=== PATIENT | male | born 1955 | race Caucasian/White ===

== ENCOUNTER 2016-08-05 08:45 | Inpatient (IN) | payer OTHER ==
[2016-07-17 13:14] VITALS: BMI 38.0
--- NOTE | 2016-07-17 13:54 | PAT Medication Instructions ---
Service Date Jul 17, 2016. Current Home Medication List Aspirin (Aspirin Ec), 81 MG PO QAM Fglmauqigsn-Eedidcmorke-Ax Cho (Glucosamine Chondroitin &), 1 TAB PO BID Hydrochlorothiazide (Hydrochlorothiazide), 1 TAB PO NOON Levothyroxine Sodium (Synthroid), 50 MCG PO QAM Losartan Potassium (Cozaar), 50 MG PO QAM Multivitamin (Multivitamin), 1 TAB PO QAM Pantoprazole (Protonix), 40 MG PO QAM Pyridoxine (Vitamin B6), 100 MG PO QAM Rosuvastatin Calcium (Crestor), 5 MG PO QPM Sildenafil Citrate (Viagra), 100 MG PO PRN Tamsulosin Hcl (Flomax), 0.4 MG PO QPM [Magnesium], 200 MG PO QPM [Migraines Med], 1 TAB PO PRN Medication Instructions For Your Scheduled Surgery [Migraines Med], 1 TAB PO PRN-- Patient advised to contact PAT department with name and dose of medication. - Hold the following medications 2 weeks prior to surgery: Axrbonbojot-Crubhvqfiri-Me Cho (Glucosamine Chondroitin &), 1 TAB PO BID - Hold the following medications the morning of surgery: Losartan Potassium (Cozaar), 50 MG PO QAM Sildenafil Citrate (Viagra), 100 MG PO PRN Pyridoxine (Vitamin B6), 100 MG PO QAM Multivitamin (Multivitamin), 1 TAB PO QAM Hydrochlorothiazide (Hydrochlorothiazide), 1 TAB PO NOON - Take the following medications the morning of surgery with a sip of water: Pantoprazole (Protonix), 40 MG PO QAM Levothyroxine Sodium (Synthroid), 50 MCG PO QAM Aspirin (Aspirin Ec), 81 MG PO QAM - Take the following medications as scheduled the night before surgery: [Magnesium], 200 MG PO QPM Tamsulosin Hcl (Flomax), 0.4 MG PO QPM Rosuvastatin Calcium (Crestor), 5 MG PO QPM Sildenafil Citrate (Viagra), 100 MG PO PRN Hydrochlorothiazide (Hydrochlorothiazide), 1 TAB PO NOON If you have any questions please call us at [phone] (Talita Mackey PA-C) or [phone] or [phone]
[2016-07-17 14:26] LABS: BASO % 0.2 %; BASO ABS # 0.01 K/uL (0-0.2); COMPLETE YES; EOS % 1.7 %; HEMATOCRIT 39.5 % (42-52); IG% 0.2 %; LYMPH % 39.5 %; LYMPH ABS # 2.32 K/uL (1.2-3.4); MEAN CELL VOLUME 94.7 fL (80-100); MEAN CORPUSCULAR HEMOGLOBIN 33.6 pg (25-34); MEAN CORPUSCULAR HGB CONC 35.4 g/dl (32-36); MEAN PLATELET VOLUME 9.9 fL (7.4-10.4); MONO % 6.6 %; NEUT % 51.8 %; PLATELET COUNT 207 K/uL (130-400); RED BLOOD COUNT 4.17 M/uL (4.7-6.1); WHITE BLOOD COUNT 5.87 K/uL (4.8-10.8)
[2016-07-17 14:34] LABS: ESTIMATED AVERAGE GLUCOSE 114 mg/dl; HA1C FLAG Normal (Normal)
--- NOTE | 2016-07-17 14:34 | DIAGNOSTIC IMAGING REPORT ---
CHEST PREADMISSION(PA/LAT) CLINICAL HISTORY: Preoperative chest COMPARISON STUDY: No previous studies for comparison. FINDINGS: There are postsurgical changes of midline sternotomy and aortic valve replacement. The cardiac and mediastinal contours are normal. There is no focal pulmonary consolidation. There is no failure. There are no pleural effusions.[ IMPRESSION: No active disease in the chest. Electronically signed by: Zafar Han M.D. 07/17/2016 2:33 PM Dictated Date/Time: 07/17/2016 2:32 PM
[2016-07-17 14:38] LABS: URINE APPEARANCE CLEAR (CLEAR); URINE BILIRUBIN NEG (NEG); URINE COLOR YELLOW; URINE NITRITE NEG (NEG); URINE PH 6.5 (4.5-7.5); UROBILINOGEN NEG (NEG)
[2016-07-17 14:41] LABS: PROTHROMBIN TIME (PATIENT) 10.5 SECONDS (9.0-12.0)
[2016-07-17 14:50] LABS: CREATININE 0.88 mg/dl (0.60-1.40); MANUAL MICROSCOPIC REQUIRED? NO; POTASSIUM 4.3 mmol/L (3.5-5.1); REVIEW REQ? NO
--- NOTE | 2016-07-29 13:47 | History and Physical ---
History & Physical Date Jul 29, 2016. Chief Complaint left knee pain History of Present Illness 1. left knee pain Mr Sanderson is a 60 year old male who is here for a follow up of left knee pain. He presents with pain, decreased rom and stiffness on the left side. Patient is here today for pre op prior to left knee TKA. The symptoms occur constantly with intermittent worsening. The problem is worse. Currently the patient states that the symptoms are moderate-severe. The pain is described as aching, discomforting and throbbing. The symptoms occur continuously. The symptoms are aggravated by ascending stairs, daily activities, descending stairs, first steps while awake, kneeling, repetitive activities, sleeping in any position, squatting and walking. Juni states that the symptoms are relieved by no specific activity. In addition to left knee pain the patient is also experiencing decreased mobility, difficulty bending, difficulty going to sleep, limping, locking, nighttime awakening, pain, stiffness, tenderness and weakness. Pertinent negatives include chills and fever. The patient has had a previous x-ray and MRI. Prior NSAIDs include ibuprofen. Patient has had previous therapy. Patient has had arthroscopic surgery. 11/20/2010 Dr. Joy performed Left knee arthroscopy w/ partial lateral meniscectomy, chondroplasty, medial femoral condyle and patella. 05/30/2015 Dr. Joy performed left knee arthroscopy w/ partial medial meniscectomy, chondroplasty medial femoral condyle and patellofemoral joint, fluoro guided subchondroplasty for stress reaction medial tibial plateau at [facility]. Past Medical/Surgical History 1. history of heart valve replacement 2. HTN 3. High Cholesterol 4. Hypothyroidism 5. Right shoulder scope 6. hernia repair 7. previous knee arthroscopy Additional History Hepatic Disease: No Hypertension: Yes Bleeding Tendencies: No Infectious Diseases: No Allergies Coded Allergies: No Known Allergies (Unverified , 07/17/16) Home Medications Scheduled Aspirin (Aspirin Ec), 81 MG PO QAM Pwgblmclpvt-Svoopmohbot-Mk Cho (Glucosamine Chondroitin &), 1 TAB PO BID Hydrochlorothiazide (Hydrochlorothiazide), 1 TAB PO NOON Levothyroxine Sodium (Synthroid), 50 MCG PO QAM Losartan Potassium (Cozaar), 50 MG PO QAM Multivitamin (Multivitamin), 1 TAB PO QAM Pantoprazole (Protonix), 40 MG PO QAM Pyridoxine (Vitamin B6), 100 MG PO QAM Rosuvastatin Calcium (Crestor), 5 MG PO QPM Sildenafil Citrate (Viagra), 100 MG PO PRN Tamsulosin Hcl (Flomax), 0.4 MG PO QPM [Magnesium], 200 MG PO QPM Scheduled PRN Carisoprodol (Carisoprodol), 1 TAB PO DAILY PRN for Headache Physical Examination Skin: warm/dry, no rash Eyes: normal inspection, EOMI, sclerae normal ENT: normal ENT inspection, pharynx normal Head: normocephalic, atraumatic Neck: supple, no adenopathy, trachea midline Respiratory/Chest: lungs clear, normal breath sounds, no respiratory distress Cardiovascular: regular rate, rhythm, no edema, no murmur Abdomen / GI: normal bowel sounds, non tender Addiitonal Comments: Exam Findings Details Knee ROM L * Active ROM - Flexion: 125 degrees, Extension: 3 degrees, Factors: normal, Description: active pain free range of motion. Passive ROM - Flexion: 135 degrees, Extension: 0 degrees, Factors: normal, Description: passive pain range of motion. Knee ROM R * Active ROM - Flexion: 135 degrees, Extension: 0 degrees, Factors: normal, Description: active pain free range of motion. Passive ROM - Flexion: 135 degrees, Extension: 0 degrees, Factors: normal, Description: passive pain free range of motion. Strength LE Normal Strength Description - Normal lower extremity: Bilateral. Knee * Gait: Antalgic. Alignment - Left: neutral. Ecchymosis - Left: negative. Effusion - Left: mild. Swelling - Left: mild. Flexibility - Left: normal. Maximum tenderness - Left: Medial Joint Line. Patella exam - Crepitation - Left : negative. Patella position - Left: neutral. Tilt - Left: equal. Dinah's - medial - Left: Positive. Knee Comments The patient has no calf tenderness. Knee Normal Inspection - Atrophy - Left: Absent. Skin - Left: Normal. Patella exam - Apprehension - Right: Negative, Left: Negative. Q-angle - Right: Normal, Left: Normal. Kay's - Left: Negative. [facility]'s - lateral - Left: Negative. Posterior drawer - Left: Negative. Anterior drawer - Left: Negative. Valgus stress - Right: Negative, Left: Negative. Varus stress - Right: Negative , Left: Negative. Extensor lag - Right: Normal, Left: Normal. Neurovascular LE Normal Neurovascular examination including reflexes, sensation , and pulses is within normal limits. Left Knee xray: Xrays reviewed of the left knee showing findings consistent with degenerative joint disease including joint space narrowing, subchondral sclerosis and peripheral osteophyte formation. no acute bony pathology, overall varus alignment. s/p subchondroplasty Impression: degenerative joint disease of the lef knee with no acute bony pathology noted. Diagnosis Left Knee DJD PM Hx as detailed above Plan of Treatment Further care discussed with patient and at this point in time has failed conservative measures and would like to proceed with a left total knee replacement. Plan on discharge will be home with outpatient physical therapy. DVT prophalaxis with TEDs, SCDs and will also place on aspirin 81 mg p.o. b.i.d. for a month postop. Patient will have follow up appointment in our office two weeks post op for staple/suture removal and re-evaluation. Patient otherwise has no other questions or concerns.
[~2016-08-05] VITALS: Ht 167.6 cm; Wt 108.1 kg
[2016-08-05] VITALS (8 sets, daily range): BP systolic 99–140; BP diastolic 64–88; PULSE 72–94; TEMP 36.6–39.9; O2SAT 92–98; Ht 167.6 cm; Wt 108.1 kg
[2016-08-05] MEDS: TRANEXAMIC ACID INJ 1,000 MG in SODIUM CHLORIDE 0.9% 100ML 100 ML IV SCH ×2 (06:30→10:37)
--- NOTE | 2016-08-05 07:12 | History & Physical Bridge Note ---
H&P Re-Evaluation Bridge Note: I have examined the patient, reviewed the History & Physical and in the interval since the performance of the History & Physical I have noted the following changes of clinical significance: No changes noted
[~2016-08-05 08:45] MED LIST: ACETAMINOPHEN 500 MG TAB PO SCH; ASPI81TA28 PO; BACITRACIN 50000 UNIT VIAL ONE; BUPIVACAINE 0.25% 30 ML VIAL ONE; BUPIVACAINE 0.5 % 5 MG/1 ML PF 10ML VIAL ONE; CEFAZOLIN 2000 MG/60 ML D5W 60 ML IV SCH; CRS/10 PO; CeleBREX 200 MG CAP PO SCH; DEXAMETHASONE 4 MG TAB PO SCH; FAMOTIDINE 20 MG TAB PO SCH; FENTANYL CITRATE INJ 50 MCG/1 ML 2 ML VIAL ONE; GABAPENTIN 300 MG CAP PO SCH; GLUCTAB32 PO; HYDR12.55 PO; LACTATED RINGER'S 1000ML 1,000 ML IV SCH; LACTATED RINGER'S 1000ML IV SCH; LACTATED RINGER'S 500 ML IV SCH; LEVO50TA PO; LIDOCAINE HCL 2% 2 ML VIAL (20MG/ML) ONE; LOSA50TA6 PO; MAGNESIUM PO; MIDAZOLAM HCL 1 MG/ML 2ML VIAL ONE; MULT-506 PO; ONDANSETRON INJ 2 MG/ML 2 ML VIAL ONE; ORTHO JOINT ANESTHETIC ONE; PANT40TA PO; POVIDONE-IODINE OP SOLN 30 ML BTL ONE; PROPOFOL IV EMULSION 10 MG/ML 20 ML VIAL IV ONE; PYRI100T4 PO; ROPIVACAINE 5MG/ML 30 ML 150 MG, BUPIVACAINE/EPINEPHR 0.5% MPF 30 ML, KETOROLAC TROMETH... INFIL SCH; SILD100T PO; SM350 PO; TAMS0.4C38 PO
[2016-08-05] MEDS ORDERED: PROPOFOL IV EMULSION 10 MG/ML 20 ML VIAL IV ONE ×2 (08:56→12:23)
[2016-08-05] MEDS ORDERED: LIDOCAINE HCL 2% 2 ML VIAL (20MG/ML) ONE (08:56)
[2016-08-05] MEDS ORDERED: MIDAZOLAM HCL 1 MG/ML 2ML VIAL ONE ×2 (08:56→11:26)
[2016-08-05] MEDS ORDERED: ONDANSETRON INJ 2 MG/ML 2 ML VIAL ONE (08:56)
[2016-08-05] MEDS ORDERED: FENTANYL CITRATE INJ 50 MCG/1 ML 2 ML VIAL ONE (10:45)
[2016-08-05] MEDS ORDERED: POVIDONE-IODINE OP SOLN 30 ML BTL ONE (10:52)
[2016-08-05] MEDS ORDERED: LACTATED RINGER'S 1000ML 1,000 ML IV PRN (10:53)
[2016-08-05] MEDS ORDERED: FENTANYL CITRATE INJ 50 MCG/1 ML 2 ML VIAL IV PRN (11:00)
[2016-08-05] MEDS ORDERED: ONDANSETRON INJ 2 MG/ML 2 ML VIAL IV PRN ×2 (11:00→13:15)
[2016-08-05] MEDS ORDERED: EpHEDrine SULFATE 50MG/5ML SYR ONE (11:43)
--- NOTE | 2016-08-05 12:44 | [facility] Post Operative Brief Note ---
Immediate Operative Summary Operative Date Aug 05, 2016. Pre-Operative Diagnosis Left Knee Degenerative Joint Disease Post-Operative Diagnosis Left Knee Degenerative Joint Disease Procedure(s) Performed Left Total Knee Arthoplasty using jain nephew with stem tibia Surgeon Dr. Joy Clerical Order Filler Surgeon(s) Vj Clinton PA-C Estimated Blood Loss 15cc Findings severe djd with severe varus alignment Specimens A: Left knee bone and tissue Complication(s) None Disposition Recovery Room / PACU
[2016-08-05] MEDS ORDERED: MoRPHine SULFATE 2 MG/ML CARP IV PRN (13:15)
[2016-08-05] MEDS ORDERED: ZOLPIDEM TARTRATE 5 MG TAB PO PRN (13:15)
[2016-08-05] MEDS ORDERED: ALUMINUM/MAGNESIUM/SIMETH (MAALOX MAX) 30 ML UDC PO PRN (13:15)
[2016-08-05] MEDS ORDERED: DiphenhydrAMINE HCL 50 MG/ML VIAL IV PRN (13:15)
[2016-08-05] MEDS ORDERED: MAGNESIUM HYDROXIDE SUSP 30 ML UDC PO PRN (13:15)
[2016-08-05] MEDS ORDERED: BISACODYL 10 MG SUPP PR PRN (13:15)
[2016-08-05] MEDS ORDERED: CARISOPRODOL 350 MG TAB PO PRN (13:15)
--- NOTE | 2016-08-05 13:38 | Anesthesiology Progress Note ---
Anesthesia Post Op Note Date & Time Aug 05, 2016 at 13:38 Vital Signs Pain Intensity: 0 Vital Signs Past 12 Hours Date Time Temp Pulse Resp B/P Pulse Ox O2 Delivery O2 Flow Rate FiO2 08/05/16 13:30 82 16 116/74 94 Nasal Cannula 2 08/05/16 13:20 82 16 104/72 96 Nasal Cannula 2 08/05/16 13:14 36.6 85 16 110/72 97 Nasal Cannula 2 08/05/16 09:05 39.9 72 18 140/85 96 Room Air Notes Mental Status: alert / awake / arousable, participated in evaluation Pt Amnestic to Procedure: Yes Nausea / Vomiting: adequately controlled Pain: adequately controlled Airway Patency, RR, SpO2: stable & adequate BP & HR: stable & adequate Hydration State: stable & adequate Neuraxial Anesthesia: was administered, sensory block is resolving Anesthetic Complications: no major complications apparent Pt doing very well.
--- NOTE | 2016-08-05 13:44 | DIAGNOSTIC IMAGING REPORT ---
TWO VIEWS LEFT KNEE CLINICAL HISTORY: Postoperative examination. FINDINGS: AP and crosstable lateral portable views of the left knee are obtained. A left knee arthroplasty is in near anatomic alignment. There has been undersurface remodeling of the patella. No acute fracture is seen. There are expected postoperative changes around the knee including skin clips, a surgical drain, soft tissue edema, and subcutaneous gas. IMPRESSION: Expected postoperative changes status post left knee arthroplasty. No acute fracture is seen. Electronically signed by: Reggie Ceja M.D. 08/05/2016 1:43 PM Dictated Date/Time: 08/05/2016 1:43 PM
--- NOTE | 2016-08-05 14:10 | OPERATIVE REPORT ---
DATE OF OPERATION: 08/05/2016 PREOPERATIVE DIAGNOSES: Severe end-stage degenerative joint disease, left knee with collapse medial compartment, status post subchondroplasty. POSTOPERATIVE DIAGNOSES: Same. PROCEDURE: Left total knee arthroplasty with a Journey II with block total knee arthroplasty size 5 femur, 4 tibia with a 14 x 100 mm stem, 13 constrained poly, 32 oval patella. SURGEON: Moises Joy DO ACTUARIAL SCIENCE TEACHER: Vj Clinton PA-C who was necessary for prepping, draping, retraction, and wound closure of deep fascia, subQ and skin and is necessary for case. ESTIMATED BLOOD LOSS: 50 mL. COMPLICATIONS: None. TOURNIQUET TIME: 50 minutes. HISTORY OF PRESENT ILLNESS: The patient presents as a very pleasant 60-year-old white male being seen and evaluated with complaints of ongoing pain about his knee. He has failed attempts at conservative management including physical therapy, viscosupplementation, bracing, activity modification and relative rest and presents for total knee arthroplasty. DESCRIPTION OF PROCEDURE: The patient was properly prepped and draped in supine position for total knee arthroplasty after identifying the appropriate surgical site. An anterior midline incision was made through the subcutaneous tissues down to the region of the extensor mechanism. A medial parapatellar incision was subsequently made. Meticulous hemostasis was obtained and performed at all times. The patella having been subluxed lateralward, medial and lateral meniscal remnants were excised. The patellar cut was then initially made and was sized to the appropriate size. After subluxing the tibia forward the appropriate meniscal fragments having been removed the distal femur was then cut first utilizing a May and Nephew block. The distal femoral cuts and chamfer cuts were all made under direct visualization and the proximal tibial osteotomy cut was also made utilizing May and Nephew blocks and checked with an extramedullary guide. The appropriate trial components on the femur and tibia were placed. Appropriate trial spacers were used to check flexion and extension gaps. With flexion and extension gaps being equal, the components were then subsequently after thorough irrigation and debridement lavage components were then subsequently cemented in the following order: femur, tibia and patella. Exparel was used for intraoperative anesthesia, the medial parapatellar incision was closed utilizing #1 Vicryl, subQ was closed with 2-0 Vicryl, skin was closed with skin clips. A sterile compression dressing was placed. The patient tolerated the procedure well and was taken to recovery room in stable condition. Due to the complex nature of the procedure, the entire surgery was performed with the operational assistance of Vj Clinton PA-C. The expanded function dental assistant, under direct supervision, was involved in the actual performance of all aspects of the surgical procedure including hemostasis, tissue retraction and incision, instrument management, patient positioning, and wound closure. I attest to the content of the Intraoperative Record and any orders documented therein. Any exceptio ns are noted below.
[2016-08-05] MEDS ORDERED: MoRPHine SULFATE 10 MG/ML CARP/VIAL IV PRN (14:45)
[2016-08-05] MEDS ORDERED: MoRPHine SULFATE 4 MG/ML 1 ML CARP\\VIAL IV PRN (14:45)
--- NOTE | 2016-08-05 16:58 | Medical Consult ---
Consultation Date of Consultation: Aug 05, 2016. Attending Physician: Moises Joy D.O. Reason for Consultation: Postoperative medical management History of Present Illness The patient is a 60-year-old male who is status post left total knee arthroplasty by Dr. Joy earlier today. He reports that his pain is well controlled, he feels hungry. He has no complaints. Social History Smoking Status: Never Smoker Smokeless Tobacco Use: No Alcohol Use: none Drug Use: none Marital Status: Housing Status: lives with family Occupation Status: employed Allergies Coded Allergies: No Known Allergies (Unverified , 08/05/16) Current Inpatient Medications Current Inpatient Medications Medications (Trade) Dose Ordered Sig/Dennis Route Start Time Stop Time Status Last Admin Dose Admin Cefazolin Sodium (Ancef 2000mg/60 ml D5W) 60 ml @ 100 mls/hr PREOP IV 08/05/16 06:00 08/05/16 18:00 08/05/16 11:20 100 MLS/HR Acetaminophen (Tylenol Tab) 1,000 mg PREOP PO 08/05/16 06:00 08/05/16 18:00 08/05/16 09:31 1,000 MG Celecoxib (CeleBREX CAP) 200 mg PREOP PO 08/05/16 06:00 08/05/16 18:00 08/05/16 09:31 200 MG Dexamethasone (Decadron Tab) 8 mg PREOP PO 08/05/16 06:00 08/05/16 18:00 08/05/16 09:31 8 MG Famotidine (Pepcid Tab) 20 mg PREOP PO 08/05/16 06:00 08/05/16 18:00 08/05/16 09:32 20 MG Gabapentin 600 mg 600 mg PREOP PO 08/05/16 06:00 08/05/16 18:00 08/05/16 09:31 600 MG Tranexamic Acid/ Sodium Chloride (Cyklokapron Inj/ Nss 100ml) 110 ml @ 660 mls/hr TODAY@06,0630 IV 08/05/16 06:00 08/05/16 18:00 08/05/16 10:37 660 MLS/HR Carisoprodol (Soma Tab) 350 mg DAILY PRN PO 08/05/16 13:15 09/04/16 13:14 Levothyroxine Sodium (Synthroid Tab) 50 mcg DAILYBB PO 08/06/16 06:00 09/05/16 05:59 Losartan Potassium (coZAAR TAB) 50 mg QAM PO 08/06/16 09:00 09/05/16 08:59 Multivitamins (Multivitamin Tab) 1 tab QAM PO 08/06/16 09:00 09/05/16 08:59 Pantoprazole Sodium (Protonix Tab) 40 mg QAM PO 08/06/16 09:00 09/05/16 08:59 Pyridoxine HCl (Vitamin B-6 Tab) 100 mg QAM PO 08/06/16 09:00 09/05/16 08:59 Rosuvastatin Calcium (Crestor Tab) 5 mg QPM PO 08/05/16 21:00 09/04/16 20:59 Tamsulosin HCl (Flomax Cap) 0.4 mg QPM PO 08/05/16 21:00 09/04/16 20:59 Magnesium Oxide 200 mg 200 mg QPM PO 08/05/16 21:00 09/04/16 20:59 Potassium Chloride/Dextrose/ Sod Cl 1,000 ml @ 100 mls/hr Q10H IV 08/05/16 16:15 08/06/16 13:14 Cefazolin Sodium/ Dextrose (Ancef Iv/D5 50ml) 60 ml @ 100 mls/hr Q8H IV 08/05/16 20:00 08/06/16 04:35 Ketorolac Tromethamine (Toradol Inj) 30 mg Q6H IV. 08/05/16 16:00 08/06/16 13:14 Oxycodone HCl (Roxicodone Immediate Rel Tab) 1 TABLET FOR PAIN RATING... Q4H PRN PO 08/05/16 13:15 08/19/16 13:14 Oxycodone HCl (Oxycontin Tab) 10 mg Q12 PO 08/05/16 21:00 08/19/16 20:59 Acetaminophen (Tylenol Tab) 1,000 mg Q8H PO 08/05/16 22:00 09/04/16 13:14 Magnesium Hydroxide (Milk Of Magnesia Susp) 30 ml Q6H PRN PO 08/05/16 13:15 09/04/16 13:14 Bisacodyl (Dulcolax Supp) 10 mg DAILY PRN DC 08/05/16 13:15 09/04/16 13:14 Senna (Senokot Tab) 17.2 mg HS PO 08/05/16 21:00 09/04/16 20:59 Docusate Sodium (coLACE CAP) 100 mg BID PO 08/05/16 21:00 09/04/16 20:59 Diphenhydramine HCl (Benadryl Inj) 25 mg Q8H PRN IV 08/05/16 13:15 09/04/16 13:14 Al Hydrox/Mg Hydrox/Simethicone (Maalox Max Susp) 15 ml Q4H PRN PO 08/05/16 13:15 09/04/16 13:14 Zolpidem Tartrate (Ambien Tab) 5 mg HSZ PRN PO 08/05/16 13:15 09/04/16 13:14 Ondansetron HCl (Zofran Inj) 4 mg Q6H PRN IV 08/05/16 13:15 09/04/16 13:14 Ferrous Gluconate (Ferrous Gluconate Tab) 324 mg TIDM PO 08/05/16 17:45 09/04/16 17:59 Aspirin (Ecotrin Tab) 81 mg BID PO 08/05/16 21:00 09/04/16 20:59 Morphine Sulfate (MoRPHine SULFATE INJ) 2 mg Q4HWA PRN IV 08/05/16 13:15 08/19/16 13:14 Morphine Sulfate (MoRPHine SULFATE INJ) 4 mg Q4HWA PRN IV 08/05/16 14:45 08/19/16 14:44 Morphine Sulfate (MoRPHine SULFATE INJ) 6 mg Q4HWA PRN IV 08/05/16 14:45 08/19/16 14:44 Review of Systems The patient denies chest pain, palpitations, shortness of breath, cough, vision change, hearing change, sore throat, fevers, chills, sweats, weight change, fatigue, nausea, vomiting, abdominal pain, pelvic pain, blood in urine or stool , dysuria, urinary frequency or urgency, lightheadedness, dizziness, headache, memory loss, rash, abnormal bruising or bleeding, night sweats, or allergy symptoms. The review of systems is otherwise negative other than for that already noted above, and at least 10 systems have been reviewed. Physical Exam Date Time Temp Pulse Resp B/P Pulse Ox O2 Delivery O2 Flow Rate FiO2 08/05/16 16:24 94 16 129/79 94 Room Air 08/05/16 16:09 95 Room Air 08/05/16 15:59 36.8 78 16 133/88 97 Nasal Cannula 3.0 08/05/16 15:30 96 Nasal Cannula 3.0 08/05/16 15:30 37.1 84 16 111/74 96 Nasal Cannula 3.0 08/05/16 15:00 37.0 85 16 116/74 94 Nasal Cannula 2 08/05/16 14:45 81 16 115/73 94 Nasal Cannula 2 08/05/16 14:30 78 16 118/72 94 Nasal Cannula 2 08/05/16 14:15 36.6 90 16 115/74 94 Nasal Cannula 2 08/05/16 14:00 36.6 82 16 127/79 94 Nasal Cannula 2 08/05/16 13:50 36.6 79 16 126/76 94 Nasal Cannula 2 08/05/16 13:40 88 16 131/82 95 Nasal Cannula 2 08/05/16 13:30 82 16 116/74 94 Nasal Cannula 2 08/05/16 13:20 82 16 104/72 96 Nasal Cannula 2 08/05/16 13:14 36.6 85 16 110/72 97 Nasal Cannula 2 08/05/16 09:05 39.9 72 18 140/85 96 Room Air The patient is awake, well-developed and adequately nourished, alert and oriented 3, normocephalic and atraumatic, lying in bed and in no acute distress. HEENT--PERRL, EOMI, mucous membranes and oropharynx moist. Neck--supple, no JVD or bruits, thyroid normal, trachea midline, no adenopathy. Heart--normal S1 and S2, no extra beats, no murmurs, rubs or gallops. Lungs--clear bilaterally with good air movement, no respiratory distress, no accessory muscle use. Abdomen--normal bowel sounds and soft, nontender and nondistended, no hernias or masses, no organomegaly. Extremities--no cyanosis, clubbing or edema. There are good distal pulses b/l. Dermatologic--normal skin turgor, normal color, warm and dry, no abnormal lymph nodes, no rash. Neurologic--cranial nerves II through XII grossly intact, motor and sensory examination normal. Rheumatologic--left knee wrapped. Psychiatric--normal affect. Laboratory Results Last 24 Hours Test 08/05/16 09:04 Assessment & Plan Status post left total knee arthroplasty--medically stable. Hypertension/status post heart valve replacement--continue losartan potassium 50 mg by mouth every morning, HCTZ 12.5mg resume at noon on 08/06, and enteric coated aspirin 81 mg by mouth every morning. Hypothyroidism--continue levothyroxine sodium 50 g by mouth every morning. GERD--continue pantoprazole 40 mg by mouth every morning. BPH--continue tamsulosin 0.4 mg by mouth in the evening. Hypercholesterolemia--continue Crestor 5 mg by mouth every afternoon. Thank you for this consult, the [facility] service will follow along during hospital stay.
[2016-08-05] MEDS: D5W AND 1/2NSS + 20MEQ KCL 1,000 ML IV SCH (17:00)
[2016-08-05] MEDS: FERROUS GLUCONATE 324 MG TAB PO SCH (17:01)
[2016-08-05] MEDS: KETOROLAC TROMETHAMINE 30 MG/ML VIAL IV. SCH ×2 (17:02→22:01)
[2016-08-05] MEDS ORDERED: PNEUMOCOCCAL POLYSACCHARIDES 25 MCG/0.5 ML VIAL/SYR IM. ONE (18:00)
[2016-08-05] MEDS ORDERED: PNEUMOCOCCAL ADMINISTRATION CHARGE ONE (18:00)
[2016-08-05] MEDS: CEFAZOLIN IV 2,000 MG in DEXTROSE 5% 50ML 50 ML IV SCH (20:23)
[2016-08-05] MEDS: DOCUSATE SODIUM 100 MG CAP PO SCH (20:26)
[2016-08-05] MEDS: OXYCODONE HCL 10 MG TABCR (OXYCONTIN) PO SCH (20:26)
[2016-08-05] MEDS: MAGNESIUM OXIDE 400 MG TAB PO SCH (20:27)
[2016-08-05] MEDS: ASPIRIN 81 MG ECTAB PO SCH (20:28)
[2016-08-05] MEDS: ROSUVASTATIN CALCIUM 5 MG TAB PO SCH (20:28)
[2016-08-05] MEDS: TAMSULOSIN HCL 0.4 MG CAP PO SCH (20:28)
[2016-08-05] MEDS: SENNA 8.6 MG TAB PO SCH (20:29)
[2016-08-05] MEDS: ACETAMINOPHEN 500 MG TAB PO SCH (22:00)
[2016-08-05] MEDS: OXYCODONE HCL IR 5 MG TAB (IMMEDIATE RELEASE) PO PRN (22:02)
[2016-08-06] MEDS: D5W AND 1/2NSS + 20MEQ KCL 1,000 ML IV SCH ×2 (02:10→12:15)
[2016-08-06 02:50] VITALS: BP 109/67; PULSE 66; TEMP 36.8; O2SAT 96
[2016-08-06] MEDS: CEFAZOLIN IV 2,000 MG in DEXTROSE 5% 50ML 50 ML IV SCH (03:49)
[2016-08-06] MEDS: KETOROLAC TROMETHAMINE 30 MG/ML VIAL IV. SCH ×2 (03:49→10:17)
[2016-08-06] MEDS: OXYCODONE HCL IR 5 MG TAB (IMMEDIATE RELEASE) PO PRN ×4 (03:54→17:05)
[2016-08-06] MEDS: LEVOTHYROXINE 50 MCG TAB PO SCH (05:27)
[2016-08-06] MEDS: ACETAMINOPHEN 500 MG TAB PO SCH ×3 (05:28→21:16)
[2016-08-06 07:09] LABS: HEMATOCRIT 33.5 % (42-52); MEAN CELL VOLUME 94.4 fL (80-100); MEAN CORPUSCULAR HEMOGLOBIN 32.7 pg (25-34); MEAN CORPUSCULAR HGB CONC 34.6 g/dl (32-36); MEAN PLATELET VOLUME 9.6 fL (7.4-10.4); PLATELET COUNT 206 K/uL (130-400); RED BLOOD COUNT 3.55 M/uL (4.7-6.1); WHITE BLOOD COUNT 10.88 K/uL (4.8-10.8)
--- NOTE | 2016-08-06 07:11 | Orthopedic Progress Note ---
Orthopedic Progress Note Date of Service Aug 06, 2016. Subjective Post OP Day: 1 (s/p Left TKA) Reports: feeling well, pain controlled w PO medications, Denies: SOB, calf pain , chest pain, complaints, light headedness, nausea / vomiting Objective calves soft nontender, N/V intact, capillary refill less than 2 sec., dressing C /D/I, A&O x3, toes mobile, hemovac drainage (150 cc/ 8 hours) Date Time Temp Pulse Resp B/P Pulse Ox O2 Delivery O2 Flow Rate FiO2 08/06/16 02:50 36.8 66 17 109/67 96 Room Air 08/06/16 00:00 Room Air 08/05/16 23:46 36.7 76 18 99/64 98 Room Air 08/05/16 18:44 36.8 79 16 112/73 92 Room Air 08/05/16 17:35 36.6 92 16 116/74 95 Room Air 08/05/16 16:24 94 16 129/79 94 Room Air 08/05/16 16:09 95 Room Air 08/05/16 15:59 36.8 78 16 133/88 97 Nasal Cannula 3.0 08/05/16 15:30 96 Nasal Cannula 3.0 08/05/16 15:30 37.1 84 16 111/74 96 Nasal Cannula 3.0 08/05/16 15:00 37.0 85 16 116/74 94 Nasal Cannula 2 08/05/16 14:45 81 16 115/73 94 Nasal Cannula 2 08/05/16 14:30 78 16 118/72 94 Nasal Cannula 2 08/05/16 14:15 36.6 90 16 115/74 94 Nasal Cannula 2 08/05/16 14:00 36.6 82 16 127/79 94 Nasal Cannula 2 08/05/16 13:50 36.6 79 16 126/76 94 Nasal Cannula 2 08/05/16 13:40 88 16 131/82 95 Nasal Cannula 2 08/05/16 13:30 82 16 116/74 94 Nasal Cannula 2 08/05/16 13:20 82 16 104/72 96 Nasal Cannula 2 08/05/16 13:14 36.6 85 16 110/72 97 Nasal Cannula 2 08/05/16 09:05 39.9 72 18 140/85 96 Room Air Laboratory Results 24 Hours: Test 08/06/16 06:52 Assessment & Plan Assessment: POD #1 s/p Left TKA -PT/OT -dvt proph with LOCO/SCD/ASA -plan for d/c home with OPPT when stable Hypertension, h/o heart valve replacement--continue losartan potassium 50 mg by mouth every morning, HCTZ 12.5mg resume at noon on 08/06 Hypothyroidism--continue levothyroxine GERD--continue pantoprazole BPH Hypercholesterolemia Discharge Planning Discharge Planning: home with oppt DVT Prophylaxis: TEDs, SCDs, ASA
[2016-08-06 07:38] LABS: CALCIUM 8.2 mg/dl (8.5-10.1); CREATININE 0.97 mg/dl (0.60-1.40); POTASSIUM 4.2 mmol/L (3.5-5.1)
[2016-08-06 08:01] VITALS: BP 110/73; PULSE 67; TEMP 36.5; O2SAT 95
[2016-08-06] MEDS ORDERED: MULTIVITAMIN TAB PO SCH (09:00)
[2016-08-06] MEDS ORDERED: PANTOprazole SOD 40 MG TAB PO SCH (09:00)
[2016-08-06] MEDS: DOCUSATE SODIUM 100 MG CAP PO SCH ×2 (09:08→20:41)
[2016-08-06] MEDS: PANTOprazole SOD 40 MG TAB PO SCH (09:10)
[2016-08-06] MEDS: PYRIDOXINE HCL 50 MG TAB PO SCH (09:10)
[2016-08-06] MEDS: HYDROCHLOROTHIAZIDE 25 MG TAB PO SCH (09:11)
[2016-08-06] MEDS: ASPIRIN 81 MG ECTAB PO SCH ×2 (09:11→20:42)
[2016-08-06] MEDS: FERROUS GLUCONATE 324 MG TAB PO SCH ×3 (09:11→17:04)
[2016-08-06] MEDS: MULTIVITAMIN TAB PO SCH (09:11)
[2016-08-06] MEDS: LOSARTAN POTASSIUM 50 MG TAB PO SCH (09:12)
[2016-08-06] MEDS: OXYCODONE HCL 10 MG TABCR (OXYCONTIN) PO SCH ×2 (09:16→20:41)
[2016-08-06 10:47] VITALS: BP 115/77; PULSE 69; O2SAT 96
[2016-08-06 11:58] VITALS: BP 112/68; PULSE 66; TEMP 36.7; O2SAT 95
--- NOTE | 2016-08-06 13:17 | Discharge Instructions ---
Discharge Instructions Admission Reason for Admission: Left Knee Osteoarthritis Discharge Discharge Diagnosis / Problem: left TKA Discharge Goals Goal(s): Decrease discomfort, Improve function, Increase independence Activity Recommendations Activity Limitations: as noted below Weightbearing Status: Left weightbearing (as tolerated) . Instructions / Follow-Up Instructions / Follow-Up ACTIVITY RECOMMENDATIONS: SELF CARE INSTRUCTIONS AFTER TOTAL KNEE REPLACEMENT A. You may need to continue a physical therapy program after discharge from the hospital. There are several options available to you. Your doctor will assist you in selecting the best one for you. 1. An out-patient facility 2 to 3 times a week for therapy or home therapy. 2. Continue working on all exercises taught to you in the hospital. Your goals should be to increase bending of your knee to 90 degrees and beyond and to fully straighten your knee. B. You may progress at your own pace from walking with a walker or crutches to a cane; then to no assistive devices. C. Make walking a part of your daily routine. Be up as much as comfortable with rest periods throughout the day. Rest with leg elevation is very important. Use the ice wrap frequently for the first 3-4 weeks. D. There are no restrictions on activities. 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 E. Wear the long elastic stockings (LOCO hose) 20 hours a day for 2 weeks after surgery. They can be removed several times a day for laundering and for a bath. F. You may shower, no tub baths until cleared by your doctor. SPECIAL CARE INSTRUCTIONS: VERY IMPORTANT TO READ AND REVIEW A. There are a few signs you need to watch for after you are home. Call [facility] [place] if you notice any of the followin. Increased severe knee pain. Some pain is expected especially when you exercise. 2. Increased swelling in your leg or knee; pain or swelling of the calf muscle in either lower leg. 3. Any fluid drainage from the incision. 4. Shortness of breath or chest pain. B. Please call [facility] [place] at if you have any concerns or questions about your operation or recovery. The doctor or his nurse will return your call promptly. C. You must take antibiotics before dental work, bladder, bowel or other surgery. Your doctor will provide you with a permanent care to carry describing this precaution. IMPORTANT: * REMEMBER TO TAKE ASPIRIN, 81 MG, TWICE DAILY FOR 4 WEEKS UNLESS OTHERWISE DIRECTED. THIS IS YOUR BLOOD THINNER. * HIGH RISK PATIENTS MAY BE PRESCRIBED A STRONGER BLOOD THINNER. THIS WILL BE PROVIDED AT DISCHARGE. * CALL IF INCREASED PAIN, REDNESS, DRAINAGE OR FEVER GREATER THAT 101. * WEAR LOCO HOSE 20 HOURS PER DAY FOR 2 WEEKS. * YOU MAY HAVE A LARGE BAND-AID LIKE DRESSING (SILVERON). THIS WILL REMAIN ON YOUR INCISION FOR 7 DAYS, THEN CAN BE REMOVED. IF INCISION IS LEAKING THROUGH DRESSING, CALL THE OFFICE . FOLLOW UP VISIT: If appointment is not already scheduled: Please call [facility] [place] to make a follow-up appointment for 2 weeks after your surgery at . Current Hospital Diet Patient's current hospital diet: AHA Diet (Heart Healthy) Discharge Diet Recommended Diet: Regular Diet Procedures Procedures Performed: Left Total Knee Arthoplasty using jain nephew with stem tibia Pending Studies Studies pending at discharge: no Laboratory Results Hemoglobin A1c Test 07/17/16 14:02 Range/Units Estimated Average Glucose 114 mg/dl Hemoglobin A1c 5.6 4.5-5.6 % Medical Emergencies . Who to Call and When: Medical Emergencies: If at any time you feel your situation is an emergency, please call [phone] immediately. . Non-Emergent Contact Non-Emergency issues call your: Primary Care Provider, Surgeon . "Provider Documentation" section prepared by Mohinder Sparks. VTE Core Measure Inpt VTE Proph given/why not?: Other Anticoagulation (ASA 81mg po bid x 1 month ), T.E.Milka Benson, SCD's [place] Drug Monitoring Program Search Results: patient reviewed within database, no issues identified
--- NOTE | 2016-08-06 13:41 | Anesthesiology Progress Note ---
Anesthesia Post Op Note Date & Time Aug 06, 2016 at 13:40 Vital Signs Vital Signs Past 12 Hours Date Time Temp Pulse Resp B/P Pulse Ox O2 Delivery O2 Flow Rate FiO2 08/06/16 11:58 36.7 66 18 112/68 95 Room Air 08/06/16 08:01 36.5 67 19 110/73 95 Room Air 08/06/16 07:20 Room Air 08/06/16 02:50 36.8 66 17 109/67 96 Room Air Notes Mental Status: alert / awake / arousable, participated in evaluation Pt Amnestic to Procedure: Yes Nausea / Vomiting: adequately controlled Pain: adequately controlled Airway Patency, RR, SpO2: stable & adequate BP & HR: stable & adequate Hydration State: stable & adequate Neuraxial Anesthesia: was administered, sensory block resolved Anesthetic Complications: no major complications apparent
[2016-08-06 15:32] VITALS: BP 104/67; PULSE 66; TEMP 36.7; O2SAT 96
--- NOTE | 2016-08-06 17:52 | Progress Note ---
Subjective Date of Service: Aug 06, 2016. Subjective Pt evaluation today including: conversation w/ patient, conversation w/ family Pt is doing well post-op. Does have pain related to L knee, but as expected. Tolerating PO without issue. Pt denies fever, SOB, chest pain, abd pain, n/v/c/ d ROS as noted above, otherwise neg. Objective Vital Signs Date Time Temp Pulse Resp B/P Pulse Ox O2 Delivery O2 Flow Rate FiO2 08/06/16 15:54 Room Air 08/06/16 15:32 36.7 66 18 104/67 96 Room Air 08/06/16 11:58 36.7 66 18 112/68 95 Room Air 08/06/16 10:47 69 96 08/06/16 08:01 36.5 67 19 110/73 95 Room Air 08/06/16 07:20 Room Air 08/06/16 02:50 36.8 66 17 109/67 96 Room Air 08/06/16 00:00 Room Air 08/05/16 23:46 36.7 76 18 99/64 98 Room Air 08/05/16 18:44 36.8 79 16 112/73 92 Room Air Physical Exam General Appearance: WD/WN, no apparent distress ENT: hearing grossly normal Respiratory/Chest: normal breath sounds, no respiratory distress Cardiovascular: regular rate, rhythm, no edema Abdomen: non tender, soft Extremities: non-tender, no pedal edema Neurologic/Psychiatric: alert, normal mood/affect, oriented x 3 Skin: normal color, warm/dry Laboratory Results Last 24 Hours Test 08/06/16 06:52 White Blood Count 10.88 K/uL Red Blood Count 3.55 M/uL Hemoglobin 11.6 g/dL Hematocrit 33.5 % Mean Corpuscular Volume 94.4 fL Mean Corpuscular Hemoglobin 32.7 pg Mean Corpuscular Hemoglobin Concent 34.6 g/dl RDW Standard Deviation 44.5 fL RDW Coefficient of Variation 12.8 % Platelet Count 206 K/uL Mean Platelet Volume 9.6 fL Sodium Level 140 mmol/L Potassium Level 4.2 mmol/L Chloride Level 108 mmol/L Carbon Dioxide Level 22 mmol/L Anion Gap 10.0 mmol/L Blood Urea Nitrogen 18 mg/dl Creatinine 0.97 mg/dl Est Creatinine Clear Calc Drug Dose 91.0 ml/min Estimated GFR () 96.6 Estimated GFR (Non- 83.3 BUN/Creatinine Ratio 19.0 Random Glucose 127 mg/dl Calcium Level 8.2 mg/dl Assessment and Plan Status post left total knee arthroplasty--medically stable. Hypertension/status post heart valve replacement--continue losartan potassium 50 mg by mouth every morning, HCTZ 12.5mg resume at noon on 08/06, and enteric coated aspirin 81 mg by mouth every morning. Hypothyroidism--continue levothyroxine sodium 50 g by mouth every morning. GERD--continue pantoprazole 40 mg by mouth every morning. BPH--continue tamsulosin 0.4 mg by mouth in the evening. Hypercholesterolemia--continue Crestor 5 mg by mouth every afternoon.
[2016-08-06] MEDS: TAMSULOSIN HCL 0.4 MG CAP PO SCH (21:15)
[2016-08-06] MEDS: ROSUVASTATIN CALCIUM 5 MG TAB PO SCH (21:15)
[2016-08-06] MEDS: SENNA 8.6 MG TAB PO SCH (21:15)
[2016-08-06] MEDS: MAGNESIUM OXIDE 400 MG TAB PO SCH (21:15)
[2016-08-06 23:08] VITALS: BP 116/78; PULSE 61; TEMP 36.9; O2SAT 97
[2016-08-07] MEDS: OXYCODONE HCL IR 5 MG TAB (IMMEDIATE RELEASE) PO PRN ×2 (03:14→09:18)
[2016-08-07] MEDS: LEVOTHYROXINE 50 MCG TAB PO SCH (05:47)
[2016-08-07] MEDS: ACETAMINOPHEN 500 MG TAB PO SCH (05:47)
--- NOTE | 2016-08-07 07:07 | Orthopedic Progress Note ---
Orthopedic Progress Note Date of Service Aug 07, 2016. Subjective Post OP Day: 2 Reports: feeling well, pain controlled w PO medications, Denies: SOB, calf pain , chest pain, complaints, light headedness, nausea / vomiting Objective calves soft nontender, N/V intact, capillary refill less than 2 sec., dressing C /D/I, A&O x3, toes mobile Date Time Temp Pulse Resp B/P Pulse Ox O2 Delivery O2 Flow Rate FiO2 08/06/16 23:40 Room Air 08/06/16 23:08 36.9 61 16 116/78 97 Room Air 08/06/16 15:54 Room Air 08/06/16 15:32 36.7 66 18 104/67 96 Room Air 08/06/16 11:58 36.7 66 18 112/68 95 Room Air 08/06/16 10:47 69 96 08/06/16 08:01 36.5 67 19 110/73 95 Room Air 08/06/16 07:20 Room Air Assessment & Plan Assessment: POD #2 s/p Left TKA -PT/OT -dvt proph with LOCO/SCD/ASA -plan for d/c home with OPPT when stable, likely after PT today Hypertension, h/o heart valve replacement--continue losartan potassium 50 mg by mouth every morning, HCTZ 12.5mg resume at noon on 08/06 Hypothyroidism--continue levothyroxine GERD--continue pantoprazole BPH Hypercholesterolemia Discharge Planning Discharge Planning: home with oppt DVT Prophylaxis: TEDs, SCDs, ASA
[2016-08-07] MEDS ORDERED: OXYSR10 PO (07:09)
[2016-08-07] MEDS ORDERED: ASPEC81 PO (07:09)
[2016-08-07] MEDS ORDERED: RXC5 PO (07:09)
[2016-08-07] MEDS ORDERED: ONDA8TAB6 PO (07:09)
[2016-08-07] MEDS ORDERED: ACET-1138 PO (07:09)
[2016-08-07 08:06] VITALS: BP 145/82; PULSE 76; TEMP 36.7; O2SAT 96
[2016-08-07 08:17] VITALS: BP 145/82; PULSE 76; TEMP 36.7; O2SAT 96
[2016-08-07] MEDS: DOCUSATE SODIUM 100 MG CAP PO SCH (09:00)
[2016-08-07] MEDS: HYDROCHLOROTHIAZIDE 25 MG TAB PO SCH (09:13)
[2016-08-07] MEDS: FERROUS GLUCONATE 324 MG TAB PO SCH (09:13)
[2016-08-07] MEDS: LOSARTAN POTASSIUM 50 MG TAB PO SCH (09:14)
[2016-08-07] MEDS: PYRIDOXINE HCL 50 MG TAB PO SCH (09:14)
[2016-08-07] MEDS: PANTOprazole SOD 40 MG TAB PO SCH (09:14)
[2016-08-07] MEDS: MULTIVITAMIN TAB PO SCH (09:15)
[2016-08-07] MEDS: OXYCODONE HCL 10 MG TABCR (OXYCONTIN) PO SCH (09:18)
[2016-08-07 09:44] VITALS: O2SAT 96
[2016-08-07] MEDS: ASPIRIN 81 MG ECTAB PO SCH (10:03)
--- NOTE | 2016-08-07 14:55 | Progress Note ---
Subjective Date of Service: Aug 07, 2016. Subjective Pt is doing well post-op. Tolerating PO. No SOB or chest pain. ROS as noted above, otherwise neg. Objective Vital Signs Date Time Temp Pulse Resp B/P Pulse Ox O2 Delivery O2 Flow Rate FiO2 08/07/16 09:44 96 Room Air 08/07/16 08:17 36.7 76 16 96 Room Air 08/07/16 08:06 36.7 76 16 145/82 96 Room Air 08/07/16 07:15 Room Air 08/06/16 23:40 Room Air 08/06/16 23:08 36.9 61 16 116/78 97 Room Air 08/06/16 15:54 Room Air 08/06/16 15:32 36.7 66 18 104/67 96 Room Air Physical Exam Comments: General Appearance: WD/WN, no apparent distress Respiratory/Chest: no respiratory distress Cardiovascular: no edema Extremities: no pedal edema Neurologic/Psychiatric: alert, normal mood/affect, oriented x 3 Skin: normal color, warm/dry Assessment and Plan Status post left total knee arthroplasty--medically stable. Hypertension/status post heart valve replacement--continue losartan potassium 50 mg by mouth every morning, HCTZ 12.5mg resume at noon on 08/06, and enteric coated aspirin 81 mg by mouth every morning. Hypothyroidism--continue levothyroxine sodium 50 g by mouth every morning. GERD--continue pantoprazole 40 mg by mouth every morning. BPH--continue tamsulosin 0.4 mg by mouth in the evening. Hypercholesterolemia--continue Crestor 5 mg by mouth every afternoon.
--- NOTE | 2016-08-12 13:25 | Discharge Summary ---
Orthopedic Discharge Summary Admission Date/Reason Aug 05, 2016 at 11:00 Left Knee Osteoarthritis. Discharge Date/Disposition Aug 07, 2016 Diagnosis Principal Diagnosis: Left Knee Djd Secondary Diagnoses/Problems: Htn, Hypercholesterolemia, Hypothyroidism, BPH, GERD Procedure(s) Performed Left TKA Consultations Dr Delgado Medication Reconciliation New Medications: Ondansetron Hcl (Zofran) 8 Mg Tab 8 MG PO Q8 PRN for Nausea, #20 TAB Acetaminophen (Tylenol Extra Strength) 500 Mg Tab 1000 MG PO Q8H, #126 TAB Aspirin (Aspirin EC Low Dose) 81 Mg Ectab 81 MG PO BID for 30 Days Oxycodone HCl (Oxycontin) 10 Mg Tabcr 10 MG PO Q12, #20 Oxycodone HCl (Oxycodone HCl) 5 Mg Tab 5-10 MG PO Q4H PRN for Pain, #60 TAB Continued Medications: Carisoprodol (Carisoprodol) 350 Mg Tab 1 TAB PO DAILY PRN for Headache Bwkwjliybvu-Srfmsxpmpfd-Iu Cho (Glucosamine Chondroitin &) 1 Tab Tab 1 TAB PO BID Hydrochlorothiazide (Hydrochlorothiazide) 12.5 Mg Tab 1 TAB PO NOON for 90 Days, TAB 3 Refills Levothyroxine Sodium (Synthroid) 50 Mcg Tab 50 MCG PO QAM, TAB Losartan Potassium (Cozaar) 50 Mg Tab 50 MG PO QAM, TAB Multivitamin (Multivitamin) Tab 1 TAB PO QAM, TAB Pantoprazole (Protonix) 40 Mg Tab 40 MG PO QAM, #30 TAB Pyridoxine (Vitamin B6) 100 Mg Tab 100 MG PO QAM, TAB Rosuvastatin Calcium (Crestor) 10 Mg Tab 5 MG PO QPM for 90 Days, TAB 3 Refills Sildenafil Citrate (Viagra) 100 Mg Tab 100 MG PO PRN, TAB Tamsulosin Hcl (Flomax) 0.4 Mg Cap 0.4 MG PO QPM, CAP [Magnesium] () 200 MG PO QPM Discontinued Medications: Aspirin (Aspirin Ec) 81 Mg Tab 81 MG PO QAM Admission Physical Exam As per Admitting History & Physical. Hospital Course The Patient had an uneventful hospital course. Labs remained stable- lowest hemoglobin recorded: 11.6 . Pain controlled on oral medications. Participated in PT with ambulation distance of 325 feet. ROM of operative knee reached 100 degrees. Drainage output totaled 785 cc prior to discontinuation. Patient did not have a reported bowel movement. Silverlon dressings remained clean/dry/intact. DVT prophylaxis with Aspirin EC 81mg BID x 30 days/Kristian stockings. Patient discharged home with Outpatient PT in stable condition. Please refer to daily progress notes for further details. Discharge Instructions Please refer to the electronic Patient Visit Report (Discharge Instructions) for additional information.
== END 2016-08-07 11:54 | disposition home or self-care (01) | DRG 470 ==
LOC: ENRESERVTM → ENRESERV → ENRESERVDT → C.ACU 08:45 → C.3E 11:00
PROVIDERS: ADMIT Orthopaedic Surgery; ATTEND Orthopaedic Surgery
PROC: 0SRD0J9 Replacement of Left Knee Joint with Synthetic Substitute, Cemented, Open Approach (ICD-10-PCS; principal; 2016-08-05 08:15)
DX: M17.12 Unilateral primary osteoarthritis, left knee (principal); I10 Essential (primary) hypertension; E78.00 Pure hypercholesterolemia, unspecified; E03.9 Hypothyroidism, unspecified; N40.0 Benign prostatic hyperplasia without lower urinary tract symptoms; Z79.82 Long term (current) use of aspirin; Z79.899 Other long term (current) drug therapy; Z95.2 Presence of prosthetic heart valve

== ENCOUNTER 2017-04-19 06:48 | Inpatient (IN) | payer OTHER ==
[2017-04-14 09:10] VITALS: BMI 38.0
--- NOTE | 2017-04-18 16:01 | HISTORY & PHYSICAL EXAMINATION ---
DATE OF ADMISSION: 04/19/2017 PROCEDURE TO BE PERFORMED: Right total knee arthroplasty. HISTORY OF PRESENT ILLNESS: The patient presents as a 61-year-old white male, being seen and evaluated with complaints of ongoing pain about his right knee. He had previously undergone left total knee arthroplasty. He presents today for right total knee arthroplasty after failing attempts at conservative management, physical therapy, anti-inflammatories, relative rest, and activity modification. PAST MEDICAL HISTORY: Significant for heart murmur, heart valve abnormalities, hypertension, and hypercholesterolemia. He had also heart valve replacement. He also has history of hypothyroidism. FAMILY HISTORY: Otherwise unremarkable. SOCIAL HISTORY: The patient denies a history of smoking. He relates a history alcoholic drinks per week. No recreational drug use. PAST SURGICAL HISTORY: Significant for heart valve replacement in April 2013, right shoulder rotator cuff, hernia surgery, and knee arthroscopy in 2014. Past medical history is otherwise unremarkable. See history of present illness for pertinent positives. Physical examination reveals a very pleasant 61-year-old male with the above findings noted. He has severe pain about his knee. He has been nonresponsive to conservative therapy including anti-inflammatories, relative rest, and activity modification and he presents for right total knee arthroplasty after failing conservative management. His examination today is consistent with that of DJD. He has previously had knee arthroscopies and had poor outcome with that from degenerative tears and chondral diseaseevidence of grade 3-4 chondral defect noted. PHYSICAL EXAMINATION: GENERAL: Reveals a very pleasant 61-year-old male, alert and oriented x3. HEENT: Unremarkable. Atraumatic and normocephalic. HEART: Regular at 72 beats per minute. No murmurs noted. LUNGS: Clear without rales, rhonchi, or wheezes noted. ABDOMEN: Soft, nontender, and nondistended. Bowel sounds are present in all 4 quadrants. RECTAL: No rectal examination was performed. MUSCULOSKELETAL: Consisted of sever end-stage DJD. Failed attempts at conservative management including physical therapy, anti-inflammatories, relative rest, and activity modification. The patient presents for total knee arthroplasty, postoperative pain management, DVT prophylaxis, and antibiotics as noted above. MTDD
[~2017-04-19] VITALS: Ht 167.6 cm; Wt 106.8 kg
[2017-04-19] VITALS (8 sets, daily range): BP systolic 115–133; BP diastolic 74–91; PULSE 60–75; TEMP 36.3–36.8; O2SAT 96–99; Ht 167.6 cm; Wt 106.8 kg
[2017-04-19] MEDS: TRANEXAMIC ACID INJ 1,000 MG in SODIUM CHLORIDE 0.9% 100ML 100 ML IV SCH ×2 (06:30→09:02)
[~2017-04-19 06:48] MED LIST changes: -BACITRACIN 50000 UNIT VIAL ONE; -BUPIVACAINE 0.25% 30 ML VIAL ONE; -CEFAZOLIN 2000 MG/60 ML D5W 60 ML IV SCH; +CEFAZOLIN 2000MG IV PUSH 10 ML IV SCH; -CRS/10 PO; -FENTANYL CITRATE INJ 50 MCG/1 ML 2 ML VIAL ONE; -GLUCTAB32 PO; +LACTATED RINGER'S 1000ML 500 ML IV ONE; -LACTATED RINGER'S 1000ML IV SCH; -LACTATED RINGER'S 500 ML IV SCH; -LEVO50TA PO; +LEVO75TA PO; -LIDOCAINE HCL 2% 2 ML VIAL (20MG/ML) ONE; +MAGN1CAP2 PO; -MAGNESIUM PO; +METOCLOPRAMIDE HCL 10 MG TAB PO SCH; -MIDAZOLAM HCL 1 MG/ML 2ML VIAL ONE; +NAPR1TAB9 PO; -ONDANSETRON INJ 2 MG/ML 2 ML VIAL ONE; -ORTHO JOINT ANESTHETIC ONE; -POVIDONE-IODINE OP SOLN 30 ML BTL ONE; -PROPOFOL IV EMULSION 10 MG/ML 20 ML VIAL IV ONE; +ROPIVACAINE 0.5% 5 MG/ML 30 ML VIAL ONE; +ROPIVACAINE 5MG/ML 30 ML 150 MG, BUPIVACAINE 0.5% MPF INJ 30 ML, EpINEphrine HCL INJ 0.... INFIL SCH; -ROPIVACAINE 5MG/ML 30 ML 150 MG, BUPIVACAINE/EPINEPHR 0.5% MPF 30 ML, KETOROLAC TROMETH... INFIL SCH; +ROSU5TAB PO; +TRAM-10 PO
[2017-04-19] MEDS ORDERED: PHENYLEPHRINE 100MCG/ML 5ML SYR IV PRN (07:30)
[2017-04-19] MEDS ORDERED: ONDANSETRON INJ 2 MG/ML 2 ML VIAL IV PRN ×2 (07:30→11:00)
[2017-04-19] MEDS ORDERED: EpHEDrine SULFATE INJ 50 MG/ML AMP IV PRN (07:30)
[2017-04-19] MEDS ORDERED: ATROPINE SULFATE 0.1 MG/ML 5ML SYR IV PRN (07:30)
[2017-04-19] MEDS ORDERED: HYDROmorphone INJ 2 MG/ML SYR/VIAL IV PRN (07:30)
[2017-04-19] MEDS ORDERED: LIDOCAINE HCL 2% 2 ML VIAL (20MG/ML) ONE (07:49)
[2017-04-19] MEDS ORDERED: PROPOFOL IV EMULSION 10 MG/ML 20 ML VIAL IV ONE (07:49)
[2017-04-19] MEDS ORDERED: FENTANYL CITRATE INJ 50 MCG/1 ML 2 ML VIAL ONE (07:49)
[2017-04-19] MEDS ORDERED: MIDAZOLAM HCL 1 MG/ML 2ML VIAL ONE ×2 (07:49→09:32)
[2017-04-19] MEDS ORDERED: FAMOTIDINE 20 MG TAB ONE (08:15)
[2017-04-19] MEDS ORDERED: CeleBREX 200 MG CAP ONE (08:15)
[2017-04-19] MEDS ORDERED: DEXAMETHASONE 4 MG TAB ONE (08:15)
[2017-04-19] MEDS ORDERED: GABAPENTIN 300 MG CAP PO ONE (08:15)
[2017-04-19] MEDS ORDERED: CEFAZOLIN SOD 2000MG/10 ML IV PUSH IV ONE (08:15)
[2017-04-19] MEDS ORDERED: ACETAMINOPHEN 500 MG TAB PO ONE (08:15)
[2017-04-19] MEDS ORDERED: METOCLOPRAMIDE HCL 10 MG TAB PO ONE (08:15)
[2017-04-19] MEDS ORDERED: POVIDONE-IODINE OP SOLN 30 ML BTL ONE (08:46)
[2017-04-19] MEDS ORDERED: BACITRACIN 50000 UNIT VIAL ONE (08:48)
--- NOTE | 2017-04-19 10:20 | [facility] Operative Report ---
Operative Report Operative Date Apr 19, 2017. Pre-Operative Diagnosis Right knee degenerative joint disease Post-Operative Diagnosis same as pre-operative Procedure(s) Performed Right total knee arthroplasty-cemented using [employer] Nephew journey 2 nonlocked total knee arthroplasty size 5 femur 5 tibia 12 Flora [address] 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 Shahram Benito Estimated Blood Loss 5ml Findings Patient presents with severe end-stage DJD with patellofemoral DJD medial compartment DJD large positive conservative therapy including injections viscous supplementations presents for arthroplasty of his knee and a total knee arthroplasty Specimens Specimen A: right knee bone and tissue Complication(s) None Disposition Recovery Room / PACU Indications Patient presents after failing attempts at conservative management including physical therapy anti-inflammatories relative rest activity modification patient presents for right total knee arthroplasty patient's of findings as well as subchondral sclerosis cystic changes marginal osteophytes Description of Procedure After proper prepping and draping of the Right lower extremity anterior midline incision was made over the region of the extensor extensor mechanism after meticulous hemostasis was obtained and maintained in subcutaneous tissues a medial parapatellar incision was made The patella was subluxed lateralward the medial lateral gutter were cleaned from any hypertrophic synovitis and scar tissue of the distal femoral block was placed and the distal femoral osteotomy cut was made subsequently the chamfers anterior and posterior osteotomy cuts were made utilizing the 4-in-1 block the tibia was subsequently subluxed anteriorward medial and ateral meniscal remnants were excised in their entirety remnants of the anterior and posterior cruciate ligaments were excised in their entirety excellent exposure of the proximal tibia was obtained the tibial osteotomy guide was placed on the proximal tibial osteotomy cut was made once again the knee was irrigated with copious amounts of sterile saline solution the patella was subsequently everted lateralward thickened scar tissue around the patella was removed the patella was subsequently cut utilizing a freehand technique and was drilled prepared for final preparation and placement of patella socially flexion-extension gaps were checked and the equal and symmetric trials were placed to the appropriate femoral and tibial trials with poly-spacer being placed for equal flexion and extension gaps and full range of motion including extension to 0 and flexion to 140 the trial components after having been taken to recovery range of motion was subsequently removed meticulous hemostasis was obtained and maintained subsequently a knee block injection of joint cocktail including ropivacaine 0.5% 150 mg. Bupivacaine 0.5 % epinephrine 1-200,030 mL's toradol 30 mg dexamethasone 4 mg ketamine 10 mg clonidine 100 micrograms normal saline solution 30 mg was infiltrated into the soft tissues of the posterior knee medial lateral gutters and periosteal synovium special attention was paid to protect neurovascular structures at all times subsequently trial components having been removed the knee was irrigated with sterile saline solution. debris was removed the proximal tibia was subsequently prepared and was made ready for the placement of the tibial component tibial component was also cemented and tamped into position the femoral component was subsequently placed and cemented in the position the patellar component was subsequently cemented in position because hemostasis once again obtained and maintained wound having been thoroughly irrigated with debridement and debridement lavage was performed as well as a medial parapatellar incision closed with #1 Vicryl in interrupted fashion subcutaneous was closed with #2 Vicryl skin was closed with skin clips.Dr Hall and homero Dias was necessary for prepping and drapping as well as wound closure of deep fascia Sub cutaneous tissue and skin and was necessary for the case. A sterile compressive dressing was placed patient was taken to recovery in stable condition of report dictated by Rufino I attest to the content of the Intraoperative Record and any orders documented therein. Any exceptions are noted below. I attest to the content of the Intraoperative Record and any orders documented therein. Any exceptions are noted below.
[2017-04-19] MEDS ORDERED: MAGNESIUM HYDROXIDE SUSP 30 ML UDC PO PRN (11:00)
[2017-04-19] MEDS ORDERED: BISACODYL 10 MG SUPP PR PRN (11:00)
[2017-04-19] MEDS ORDERED: MoRPHine SULFATE 2 MG/ML CARP IV PRN (11:00)
[2017-04-19] MEDS ORDERED: TRAMADOL HCL 50 MG TAB PO PRN (11:00)
[2017-04-19] MEDS ORDERED: SOD PHOSPHATE/SOD BIPHOSPHATE ENEMA 132 ML BTL PR PRN (11:00)
[2017-04-19] MEDS ORDERED: ALUMINUM/MAGNESIUM/SIMETH (MAALOX MAX) 30 ML UDC PO PRN (11:00)
[2017-04-19] MEDS ORDERED: CARISOPRODOL 350 MG TAB PO PRN (11:00)
--- NOTE | 2017-04-19 11:24 | DIAGNOSTIC IMAGING REPORT ---
R KNEE 1 OR 2 VIEWS ROUTINE CLINICAL HISTORY: Degenerative arthritis COMPARISON: None. DISCUSSION: There are postsurgical changes of a total right knee arthroplasty and patellar resurfacing. The femoral and tibial components appear well seated. Overlying surgical drains are evident. There is air within the soft tissues consistent with recent surgery. IMPRESSION: Postsurgical changes of a total right knee arthroplasty. Electronically signed by: Zafar Han M.D. 04/19/2017 11:23 AM Dictated Date/Time: 04/19/2017 11:22 AM
--- NOTE | 2017-04-19 12:26 | Anesthesiology Progress Note ---
Anesthesia Post Op Note Date & Time Apr 19, 2017 at 12:25 Vital Signs Pain Intensity: 0.0 Vital Signs Past 12 Hours Date Time Temp Pulse Resp B/P (MAP) Pulse Ox O2 Delivery O2 Flow Rate FiO2 04/19/17 12:00 98 Nasal Cannula 2.0 04/19/17 12:00 36.7 66 18 120/79 (93) 98 Nasal Cannula 2.0 04/19/17 12:00 Nasal Cannula 2.0 04/19/17 11:50 64 16 131/75 97 Nasal Cannula 2 04/19/17 11:35 36.6 70 16 124/74 97 Nasal Cannula 2 04/19/17 11:25 36.6 66 16 117/70 97 Nasal Cannula 2 04/19/17 11:15 36.6 64 16 114/69 96 Nasal Cannula 2 04/19/17 11:05 66 16 109/66 96 Nasal Cannula 2 04/19/17 10:55 68 16 106/65 96 Nasal Cannula 2 04/19/17 10:48 36.7 74 16 107/65 94 Nasal Cannula 2 04/19/17 07:51 36.8 73 18 128/91 96 Room Air Notes Mental Status: alert / awake / arousable, participated in evaluation Pt Amnestic to Procedure: Yes Nausea / Vomiting: adequately controlled Pain: adequately controlled Airway Patency, RR, SpO2: stable & adequate BP & HR: stable & adequate Hydration State: stable & adequate Anesthetic Complications: no major complications apparent
[2017-04-19] MEDS ORDERED: CEFAZOLIN IV 2,000 MG in SYRINGE 0 ML IV SCH ×2 (12:45→18:00)
[2017-04-19] MEDS: D5W AND 1/2NSS + 20MEQ KCL 1,000 ML IV SCH ×2 (12:50→22:36)
[2017-04-19] MEDS: KETOROLAC TROMETHAMINE 15 MG/ML VIAL IV. SCH ×2 (12:52→18:21)
[2017-04-19] MEDS: HYDROCHLOROTHIAZIDE 25 MG TAB PO SCH (13:26)
[2017-04-19] MEDS: ACETAMINOPHEN 500 MG TAB PO SCH ×2 (13:27→22:36)
[2017-04-19] MEDS: CEFAZOLIN IV 2,000 MG in SYRINGE 0 ML IV SCH (18:21)
[2017-04-19] MEDS: ROSUVASTATIN CALCIUM 10 MG TAB PO SCH (20:43)
[2017-04-19] MEDS: TAMSULOSIN HCL 0.4 MG CAP PO SCH (20:44)
[2017-04-19] MEDS: SENNA 8.6 MG TAB PO SCH (20:45)
[2017-04-19] MEDS: ASPIRIN 81 MG ECTAB PO SCH (20:45)
[2017-04-19] MEDS: OXYCODONE HCL IR 5 MG TAB (IMMEDIATE RELEASE) PO PRN (22:41)
[2017-04-20] MEDS: KETOROLAC TROMETHAMINE 15 MG/ML VIAL IV. SCH ×2 (00:44→05:32)
[2017-04-20] MEDS: CEFAZOLIN IV 2,000 MG in SYRINGE 0 ML IV SCH (02:08)
[2017-04-20 03:05] VITALS: BP 132/82; PULSE 66; TEMP 36.7; O2SAT 96
[2017-04-20] MEDS: OXYCODONE HCL IR 5 MG TAB (IMMEDIATE RELEASE) PO PRN ×5 (05:32→22:43)
[2017-04-20] MEDS: LEVOTHYROXINE 75 MCG TAB PO SCH (05:32)
[2017-04-20] MEDS: ACETAMINOPHEN 500 MG TAB PO SCH ×3 (05:33→21:30)
[2017-04-20] MEDS ORDERED: ROPIVACAINE 5MG/ML 30 ML 150 MG, BUPIVACAINE/EPINEPHR 0.5% MPF 30 ML, KETOROLAC TROMETH... INFIL SCH ×7 (06:00)
[2017-04-20 07:05] VITALS: BP 137/83; PULSE 66; TEMP 36.4; O2SAT 97
[2017-04-20 07:25] LABS: HEMATOCRIT 34.2 % (42-52); MEAN CELL VOLUME 94.2 fL (80-100); MEAN CORPUSCULAR HEMOGLOBIN 32.8 pg (25-34); MEAN CORPUSCULAR HGB CONC 34.8 g/dl (32-36); MEAN PLATELET VOLUME 9.6 fL (7.4-10.4); PLATELET COUNT 222 K/uL (130-400); RED BLOOD COUNT 3.63 M/uL (4.7-6.1); WHITE BLOOD COUNT 15.01 K/uL (4.8-10.8)
[2017-04-20] MEDS ORDERED: DEXAMETHASONE 4 MG TAB PO SCH (07:30)
[2017-04-20 07:51] LABS: BUN/CREATININE RATIO 16.8 (10-20); CALCIUM 8.5 mg/dl (8.5-10.1); CREATININE 0.96 mg/dl (0.60-1.40)
--- NOTE | 2017-04-20 07:55 | Orthopedic Progress Note ---
Orthopedic Progress Note Date of Service Apr 20, 2017. Subjective Post OP Day: 1 Reports: feeling well, Denies: complaints Additional Notes: Feeling well this AM. No complaints. Pain controlled presently. Objective calves soft nontender, N/V intact, dressing C/D/I, A&O x3, toes mobile, hemovac drainage (100ml latest shift) Date Time Temp Pulse Resp B/P (MAP) Pulse Ox O2 Delivery O2 Flow Rate FiO2 04/20/17 07:10 Room Air 04/20/17 07:05 36.4 66 17 137/83 (101) 97 Room Air 04/20/17 03:05 36.7 66 16 132/82 (99) 96 Room Air 04/20/17 00:15 Room Air 04/19/17 23:00 36.7 60 16 133/86 (102) 96 Room Air 04/19/17 19:45 36.3 75 18 118/74 (89) 97 Room Air 04/19/17 15:45 Room Air 04/19/17 15:06 74 17 118/75 (89) 96 Room Air 04/19/17 14:05 74 20 115/74 (88) 98 Nasal Cannula 2.0 04/19/17 13:00 36.6 74 16 117/79 (92) 98 Nasal Cannula 2.0 04/19/17 12:27 63 19 123/79 (94) 99 Nasal Cannula 2.0 04/19/17 12:00 98 Nasal Cannula 2.0 04/19/17 12:00 36.7 66 18 120/79 (93) 98 Nasal Cannula 2.0 04/19/17 12:00 Nasal Cannula 2.0 04/19/17 11:50 64 16 131/75 97 Nasal Cannula 2 04/19/17 11:35 36.6 70 16 124/74 97 Nasal Cannula 2 04/19/17 11:25 36.6 66 16 117/70 97 Nasal Cannula 2 04/19/17 11:15 36.6 64 16 114/69 96 Nasal Cannula 2 04/19/17 11:05 66 16 109/66 96 Nasal Cannula 2 04/19/17 10:55 68 16 106/65 96 Nasal Cannula 2 04/19/17 10:48 36.7 74 16 107/65 94 Nasal Cannula 2 Laboratory Results 24 Hours: Test 04/20/17 06:56 Hematocrit 34.2 % Hemoglobin 11.9 g/dL Assessment & Plan Assessment: POD 1 s/p Right TKA Plan: PT/OT Planning for OPPT upon DC Inhouse Planning Pain Management: Celebrex, Toradol, Ultram, Morphine, PO Tylenol, Oxy IR DVT Prophylaxis: TEDs, SCDs, ASA Discharge Planning Discharge Planning: home with oppt
[2017-04-20] MEDS: ASPIRIN 81 MG ECTAB PO SCH ×2 (08:28→21:32)
[2017-04-20] MEDS: MAGNESIUM OXIDE 400 MG TAB PO SCH (08:29)
[2017-04-20] MEDS: D5W AND 1/2NSS + 20MEQ KCL 1,000 ML IV SCH (08:29)
[2017-04-20] MEDS: PANTOprazole SOD 40 MG TAB PO SCH (08:29)
[2017-04-20] MEDS: MULTIVITAMIN TAB PO SCH (08:29)
[2017-04-20] MEDS: LOSARTAN POTASSIUM 50 MG TAB PO SCH (08:30)
--- NOTE | 2017-04-20 08:52 | Discharge Instructions ---
Discharge Instructions Date of Service Apr 20, 2017. Admission Reason for Admission: Right Knee Osteoarthritis Discharge Discharge Diagnosis / Problem: Right Knee Djd Discharge Goals Goal(s): Decrease discomfort, Improve function Activity Recommendations Activity Limitations: per Instructions/Follow-up section Weightbearing Status: Right weightbearing (as tolerated) . Instructions / Follow-Up Instructions / Follow-Up ACTIVITY RECOMMENDATIONS: SELF CARE INSTRUCTIONS AFTER TOTAL KNEE REPLACEMENT A. You may need to continue a physical therapy program after discharge from the hospital. There are several options available to you. Your doctor will assist you in selecting the best one for you. 1. An out-patient facility 2 to 3 times a week for therapy or home therapy. 2. Continue working on all exercises taught to you in the hospital. Your goals should be to increase bending of your knee to 90 degrees and beyond and to fully straighten your knee. B. You may progress at your own pace from walking with a walker or crutches to a cane; then to no assistive devices. C. Make walking a part of your daily routine. Be up as much as comfortable with rest periods throughout the day. Rest with leg elevation is very important. Use the ice wrap frequently for the first 3-4 weeks. D. There are no restrictions on activities. You may ride in a car, shop, participate in rock worker and all social activities. E. Wear the long elastic stockings (LOCO hose) 20 hours a day for 2 weeks after surgery. They can be removed several times a day for laundering and for a bath. F. You may shower, no tub baths until cleared by your doctor. SPECIAL CARE INSTRUCTIONS: VERY IMPORTANT TO READ AND REVIEW A. There are a few signs you need to watch for after you are home. Call [facility] if you notice any of the followin. Increased severe knee pain. Some pain is expected especially when you exercise. 2. Increased swelling in your leg or knee; pain or swelling of the calf muscle in either lower leg. 3. Any fluid drainage from the incision. 4. Shortness of breath or chest pain. B. Please call [facility] [place] at if you have any concerns or questions about your operation or recovery. The doctor or his nurse will return your call promptly. C. You must take antibiotics before dental work, bladder, bowel or other surgery. Your doctor will provide you with a permanent care to carry describing this precaution. IMPORTANT: * REMEMBER TO TAKE ASPIRIN, 81 MG, TWICE DAILY FOR 4 WEEKS UNLESS OTHERWISE DIRECTED. THIS IS YOUR BLOOD THINNER. * HIGH RISK PATIENTS MAY BE PRESCRIBED A STRONGER BLOOD THINNER. THIS WILL BE PROVIDED AT DISCHARGE. * CALL IF INCREASED PAIN, REDNESS, DRAINAGE OR FEVER GREATER THAT 101. * WEAR LOCO HOSE 20 HOURS PER DAY FOR 2 WEEKS. * Silverlon- This is a large adhesive bandage that contains silver ions. This helps your incision heal by fighting off bacteria and protecting it from the outside environment. You are permitted to shower with this dressing. This will remain on your incision for 7 days and then should be removed. Please remove it gently as not to pull off your Zipline Closure System. (see below) Some visible blood or drainage through the dressing window is normal. If there is significant drainage or leaking noted before the 7 days notify your doctor's office immediately. Once removed, keep incision clean and dry. If there is any drainage or redness noted, please call your surgeon. YOU ALSO HAVE A ZIPLINE CLOSURE SYSTEM THAT HOLDS YOUR WOUND TOGETHER. THIS MUST REMAIN ON FOR 14 DAYS AND WILL BE REMOVED IN THE OFFICE ON YOUR FIRST POSTOPERATIVE VISIT. KEEP THE WOUND COVERED WITH 4X4 GAUZE AFTER REMOVING THE SILVERLON DRESSING. FOLLOW UP VISIT: If appointment is not already scheduled: Please call [facility] to make a follow-up appointment for 2 weeks after your surgery at . Current Hospital Diet Patient's current hospital diet: Regular Diet Discharge Diet Recommended Diet: Regular Diet Procedures Procedures Performed: Right total knee arthroplasty-cemented using [employer] journey 2 nonlocked total knee arthroplasty size 5 femur 5 tibia 12 [place]ora 32 oval patella Pending Studies Studies pending at discharge: no Medical Emergencies . Who to Call and When: Medical Emergencies: If at any time you feel your situation is an emergency, please call 911 immediately. . Non-Emergent Contact Non-Emergency issues call your: Surgeon Call Non-Emergent contact if: temperature is above 101.5, your pain is not controlled, your pain is worsening, wound has increased drainage, wound has increased redness . "Provider Documentation" section prepared by Vj Clinton. . VTE Core Measure Inpt VTE Proph given/why not?: Other Anticoagulation, T.E.D. Stockings, SCD's [place] Drug Monitoring Program Search Results: patient reviewed within database, no issues identified
[2017-04-20 11:07] VITALS: BP 120/71; PULSE 63; TEMP 36.6; O2SAT 96
[2017-04-20] MEDS: HYDROCHLOROTHIAZIDE 25 MG TAB PO SCH (11:35)
--- NOTE | 2017-04-20 14:21 | Anesthesiology Progress Note ---
Anesthesia Post Op Note Date & Time Apr 20, 2017 at 14:20 Vital Signs Vital Signs Past 12 Hours Date Time Temp Pulse Resp B/P (MAP) Pulse Ox O2 Delivery O2 Flow Rate FiO2 04/20/17 11:07 36.6 63 18 120/71 (87) 96 Room Air 04/20/17 07:10 Room Air 04/20/17 07:05 36.4 66 17 137/83 (101) 97 Room Air 04/20/17 03:05 36.7 66 16 132/82 (99) 96 Room Air Notes Mental Status: alert / awake / arousable, participated in evaluation Pt Amnestic to Procedure: Yes Nausea / Vomiting: adequately controlled Pain: adequately controlled Airway Patency, RR, SpO2: stable & adequate BP & HR: stable & adequate Hydration State: stable & adequate Neuraxial Anesthesia: sensory block resolved Anesthetic Complications: no major complications apparent
[2017-04-20 15:08] VITALS: BP 123/75; PULSE 72; TEMP 36.5; O2SAT 90
[2017-04-20 19:14] VITALS: BP 136/76; PULSE 71; TEMP 36.7; O2SAT 95
[2017-04-20] MEDS: TAMSULOSIN HCL 0.4 MG CAP PO SCH (21:30)
[2017-04-20] MEDS: ROSUVASTATIN CALCIUM 10 MG TAB PO SCH (21:31)
[2017-04-20] MEDS: CeleBREX 200 MG CAP PO SCH (21:31)
[2017-04-20] MEDS: SENNA 8.6 MG TAB PO SCH (21:32)
[2017-04-20 23:34] VITALS: BP 130/83; PULSE 74; TEMP 36.8; O2SAT 95
[2017-04-21] MEDS: OXYCODONE HCL IR 5 MG TAB (IMMEDIATE RELEASE) PO PRN ×2 (04:06→08:09)
[2017-04-21] MEDS: LEVOTHYROXINE 75 MCG TAB PO SCH (05:36)
[2017-04-21] MEDS: ACETAMINOPHEN 500 MG TAB PO SCH (05:37)
[2017-04-21 07:07] VITALS: BP 126/82; PULSE 63; TEMP 36.6; O2SAT 98
[2017-04-21] MEDS: CeleBREX 200 MG CAP PO SCH (08:10)
[2017-04-21] MEDS: MAGNESIUM OXIDE 400 MG TAB PO SCH (08:11)
[2017-04-21] MEDS: PANTOprazole SOD 40 MG TAB PO SCH (08:11)
[2017-04-21] MEDS: LOSARTAN POTASSIUM 50 MG TAB PO SCH (08:11)
[2017-04-21] MEDS: MULTIVITAMIN TAB PO SCH (08:11)
[2017-04-21] MEDS: ASPIRIN 81 MG ECTAB PO SCH (08:12)
--- NOTE | 2017-04-21 08:26 | Orthopedic Progress Note ---
Orthopedic Progress Note Date of Service Apr 21, 2017. Subjective Post OP Day: 2 Reports: feeling well, Denies: chest pain, SOB, nausea / vomiting, light headedness, calf pain Objective calves soft nontender, N/V intact, capillary refill less than 2 sec., dressing C /D/I, A&O x3, toes mobile Date Time Temp Pulse Resp B/P (MAP) Pulse Ox O2 Delivery O2 Flow Rate FiO2 04/21/17 07:07 36.6 63 16 126/82 (97) 98 Room Air 04/21/17 07:05 Room Air 04/21/17 00:00 Room Air 04/20/17 23:34 36.8 74 16 130/83 (99) 95 Room Air 04/20/17 19:14 36.7 71 16 136/76 (96) 95 Room Air 04/20/17 16:04 Room Air 04/20/17 15:08 36.5 72 16 123/75 (91) 90 Room Air 04/20/17 11:07 36.6 63 18 120/71 (87) 96 Room Air Assessment & Plan Assessment: POD 2 s/p Right TKA Plan: PT/OT Planning for OPPT upon DC, DC HOME TODAY Inhouse Planning Pain Management: Celebrex, Toradol, Ultram, Morphine, PO Tylenol, Oxy IR DVT Prophylaxis: TEDs, SCDs, ASA Discharge Planning Discharge Planning: home with oppt
[2017-04-21] MEDS ORDERED: RXC5 PO (08:29)
[2017-04-21] MEDS ORDERED: ONDA8TAB6 PO (08:29)
[2017-04-21] MEDS ORDERED: CLB200 PO (08:29)
[2017-04-21] MEDS ORDERED: ASPI81TA28 PO (08:29)
[2017-04-21] MEDS ORDERED: ACET-24 PO (08:29)
[2017-04-21] MEDS ORDERED: SNK PO (08:29)
[2017-04-21 08:36] VITALS: BP 126/82; PULSE 63; TEMP 36.6; O2SAT 98
--- NOTE | 2017-04-23 08:07 | DISCHARGE SUMMARY ---
DISCHARGE DIAGNOSIS: Degenerative joint disease, right knee. SECONDARY DIAGNOSIS: None. CONSULTS: None. COMPLICATIONS: None. PROCEDURE: The patient underwent a right total knee arthroplasty with Dr. Joy on 04/19/2017. BRIEF HISTORY: Please see previously dictated history and physical. HOSPITAL SUMMARY: The patient was admitted on the above day for the above procedure. Procedure went without complication. Postop day 1, the patient was feeling well without complaints. He denied chest pain or shortness of breath. Vital signs were stable. He was afebrile. Dressing was clean, dry and intact. He was neurovascularly intact. Calves were soft and nontender. Hemovac drained 100 mL. Hemoglobin was 11.9. The patient began physical therapy per protocol. Postop day 2, the patient continued to improve. He denied chest pain or shortness of breath. Vital signs were stable. He was afebrile. Dressing was clean, dry and intact. He was neurovascularly intact. Calves were soft and nontender. The patient continued to progress with PT and was discharged to home later that day in stable condition. For further review please see the chart. LAB, X-RAY AND DISCHARGE INSTRUCTIONS: As per chart.
== END 2017-04-21 11:53 | disposition home or self-care (01) | DRG 470 ==
LOC: C.ACU 06:48 → C.3E 08:00 → ENRESERV 11:20 → UNDOADMIN 12:14 → C.3E 12:14
PROVIDERS: ADMIT Orthopaedic Surgery; ATTEND Orthopaedic Surgery
PROC: 0SRC0J9 Replacement of Right Knee Joint with Synthetic Substitute, Cemented, Open Approach (ICD-10-PCS; principal; 2017-04-19 09:30)
DX: M17.11 Unilateral primary osteoarthritis, right knee (principal); I10 Essential (primary) hypertension; E78.5 Hyperlipidemia, unspecified; Z95.2 Presence of prosthetic heart valve; E03.9 Hypothyroidism, unspecified